=== PATIENT | female | born 1970 | race Caucasian/White ===

== ENCOUNTER 2020-09-20 13:38 | Outpatient (REF) | payer OTHER, SELFPAY ==
--- NOTE | ~2020-09-20 | MM_ITS ---
EXAMINATION: MM SCREENING DIGITAL BREAST TOMOSYNTHESIS, BILATERAL CLINICAL INFORMATION: Prior history left mastectomy for invasive lobular cancer. Status post reduction contralateral right breast. Due for yearly. COMPARISON: Outside mammography: 02/24/2018 ([facility]) TECHNIQUE: Digital breast tomosynthesis is performed in both the craniocaudal and mediolateral oblique views along with computer-aided detection (CAD). Synthesized 2D images are generated from the tomosynthesis. FINDINGS: There are scattered areas of fibroglandular density (ACR BI-RADS breast composition Category b). There is mild reduced breast size, decreased parenchymal density, and mild scarring since outside exam 2018, consistent with the reduction. Nodular asymmetry mid upper breast on MLO view is stable, also present on prior outside MLO view. There is no significant mass or architectural abnormality or abnormal calcifications. The axilla and skin contours are unremarkable. MM/MM tomosynthesis screening RT IMPRESSION: No mammographic evidence of malignancy. ASSESSMENT: BI-RADS 2: Benign RECOMMENDATION: Routine annual mammography screening. This patient's information was entered into a reminder system with a target due date for their next mammogram.
== END 2020-09-20 13:39 | disposition home or self-care (01) ==
LOC: HO.MAMMO 13:38
PROVIDERS: Visit Provider Internal Medicine Medical Oncology
DX: Z12.31 Encounter for screening mammogram for malignant neoplasm of breast (principal)
CPT/HCPCS: 77063; 77067

== ENCOUNTER 2021-09-25 08:13 | Outpatient (REF) | payer OTHER, SELFPAY ==
--- NOTE | ~2021-09-25 | MM_ITS ---
EXAMINATION: MM SCREENING DIGITAL BREAST TOMOSYNTHESIS, RIGHT CLINICAL INFORMATION: Screening. Asymptomatic. Status post left mastectomy. Status post right breast reduction. COMPARISON: Mammography: 09/20/2020 and studies dating back to 02/24/2018. TECHNIQUE: Digital breast tomosynthesis is performed in both the craniocaudal and mediolateral oblique views along with computer-aided detection (CAD). Synthesized 2-D images are generated from the tomosynthesis. Right exaggerated craniocaudal view also performed. FINDINGS: There are scattered areas of fibroglandular density (ACR BI-RADS breast composition Category b). Postsurgical scarring from reduction mammoplasty of the right breast is evident. There is question of a new circumscribed density seen on mediolateral oblique projection measuring approximately 1.1 x 0.9 cm in size within the central breast. Recommend patient be called back for spot compression view and possible ultrasound of this finding. This could be postoperative change but is more prominent than on prior examinations. MM/MM tomosynthesis screening RT IMPRESSION: 1. Question partially circumscribed density central aspect of the right breast for further evaluation. 2. Status post left mastectomy. ASSESSMENT: BI-RADS 0: Incomplete - Need Additional Imaging Evaluation RECOMMENDATION: 1. Additional views of the right breast. 2. Targeted ultrasound if warranted after review of the additional views. 3. Radiology department staff will contact the patient for additional imaging.
--- NOTE | ~2021-09-25 | MM_ITS ---
EXAMINATION: BONE DENSITOMETRY CLINICAL INDICATION: Postmenopausal. COMPARISON: Baseline BD dated 10/30/2018. TECHNIQUE: Using a Mandae DXA System (software version: 13.1) manufactured by [employer], dual-energy x-ray absorptiometry was performed of the lumbar spine and left hip. The images are of good technical quality. Summary results are attached. FINDINGS: AP SPINE L1-L3 (excluding L4): The data of L1-L4 has been changed to exclude the L4 vertebral body, because degenerative changes at this level may cause overestimation of lumbar spine density. Current: BMD 1.242 g/cm2, Z-score 0.0, T-score 0.6, normal, 5.5% decrease from baseline (<5% change is not significant). Baseline: BMD 1.314 g/cm2. LEFT FEMUR, NECK: Current: BMD 1.150 g/cm2, Z-score 0.9, T-score 0.8, normal. Baseline: BMD 1.238 g/cm2. LEFT FEMUR, TOTAL: Current: BMD 1.183 g/cm2, Z-score 1.1, T-score 1.4, normal, 0.3% decrease from baseline (<5% change is not significant). Baseline: BMD 1.186 g/cm2. IDENTIFIED RISK FACTORS: Menopause, tobacco use (current smoker). HISTORY OF FRACTURE: None listed. MEDICATIONS: Multivitamin, ERT/SERMS. MM/XR DEXA axial skeleton IMPRESSION: 1. DIAGNOSIS: Normal bone density based on the lowest T-score value of 0.6 in the lumbar spine applying World Health Organization criteria. 2. 10-YEAR FRACTURE RISK PREDICTION, FRAX: According to the guidelines, FRAX calculation should only be performed on patients in the osteopenia bone density category. Therefore, FRAX was not performed on this patient. 3. Treatment Recommendations: NOF guidelines recommend consideration for treatment in postmenopausal women and men age 50 and older presenting with the following: -A hip or vertebral (clinical or morphometric) fracture. -T-score less than or equal to -2.5 at the femoral neck or spine after appropriate evaluation to exclude secondary causes. -Low bone mass at the hip or spine and a 10-year fracture probability by FRAX of greater than or equal to 3% for hip fracture or greater than or equal to 20% for major osteoporotic fracture based on the [place] adapted WHO algorithm. 4. Other Recommendations: All treatment decisions require clinical judgment and consideration of individual patient factors, including patient preferences, comorbidities, previous drug use, risk factors not captured in the FRAX model (e.g. frailty, falls, vitamin D deficiency, increased bone turnover, interval significant decline in bone density) and possible under or overestimation of fracture risk by FRAX. FUTURE SCAN RECOMMENDATION: People with diagnosed cases of osteoporosis or at high risk for fracture should have regular bone mineral density tests. For patients eligible for Medicare, routine testing is allowed once every 2 years. The testing frequency can be increased to one year for patients who have rapidly progressing disease, those who are receiving or discontinuing medical therapy to restore bone mass, or have additional risk factors.
== END 2021-09-25 08:14 | disposition home or self-care (01) ==
LOC: HO.MAMMO 08:13
PROVIDERS: PCP Family Medicine; Visit Provider Internal Medicine Medical Oncology
DX: Z12.31 Encounter for screening mammogram for malignant neoplasm of breast (principal); Z13.820 Encounter for screening for osteoporosis; Z78.0 Asymptomatic menopausal state
CPT/HCPCS: 77063; 77067; 77080

== ENCOUNTER 2021-10-05 08:57 | Outpatient (REF) | payer OTHER, SELFPAY ==
--- NOTE | ~2021-10-05 | MM_ITS ---
EXAMINATION: MM DIAGNOSTIC DIGITAL BREAST TOMOSYNTHESIS, RIGHT US BREAST LIMITED, RIGHT CLINICAL INFORMATION: Density about the central aspect of the right breast. Status post previous right breast reduction mammoplasty. History of left breast mastectomy. COMPARISON: Mammography: 09/25/2021 and studies dating back to 02/24/2018. TECHNIQUE: Digital breast tomosynthesis was performed. 2D images were generated from the tomosynthesis. The following views are obtained: Spot compression views in craniocaudal and mediolateral oblique projections. Targeted right breast ultrasound. FINDINGS: There are scattered areas of fibroglandular density (ACR BI-RADS breast composition Category b). MAMMOGRAPHY: Additional views compress out the questioned mass with a similar appearance to prior studies with the appearance of stable scarring related to breast reduction surgery. ULTRASOUND: No abnormal right breast cystic or solid masses are identified. No suspicious region of abnormal distal sound shadowing. Results were discussed with the patient at time of visit. MM/MM tomosynthesis added views R IMPRESSION: No mammographic or evidence of right breast malignancy. Scarring related to reduction mammoplasty. ASSESSMENT: BI-RADS 2: Benign. RECOMMENDATION: Routine annual mammography screening. This patient's information was entered into a reminder system with a target due date for their next mammogram.
--- NOTE | ~2021-10-05 | US_ITS ---
EXAMINATION: US DIAGNOSTIC ULTRASOUND BREAST, RIGHT CLINICAL INFORMATION: Central breast density. COMPARISON: Mammography of October 05, 2021 and studies dating back to February 24, 2018. TECHNIQUE: Ultrasound of the breast is performed with real-time garcia scale imaging and color Doppler. FINDINGS: There is no focal suspicious finding. There is no solid mass, architectural abnormality, duct ectasia, or edema in the soft tissue planes. Results are discussed with the patient at time of visit. US/US breast RT limited IMPRESSION: No suspicious right breast ultrasound findings. ASSESSMENT: BI-RADS 1: Negative RECOMMENDATION: Routine annual mammography screening. This patient's information was entered into a reminder system with a target due date for their next mammogram.
== END 2021-10-05 08:58 | disposition home or self-care (01) ==
LOC: HO.MAMMO 08:57
PROVIDERS: Visit Provider Internal Medicine Medical Oncology
DX: R92.2 Inconclusive mammogram (principal)
CPT/HCPCS: 76642; 77061; 77065

== ENCOUNTER → 2021-11-08 09:41 | Outpatient (BNVA) | payer SELFPAY | PROVIDERS: PCP Family Medicine; Visit Provider Physician Assistant Medical | DX: Z02.79 Encounter for issue of other medical certificate (principal) ==

== ENCOUNTER → 2022-10-25 09:50 | Outpatient (REF) | payer OTHER, SELFPAY ==
--- NOTE | ~2022-10-25 | NM_ITS ---
EXAMINATION: NM BONE SCAN OF THE WHOLE BODY CLINICAL INFORMATION: Elevated alkaline phosphatase, hip pain. History of breast cancer COMPARISON: None TECHNIQUE: Multiple gamma scintillation camera images of the whole body were performed 3 hours following the intravenous administration of 42 mCi Tc-99m MDP. FINDINGS: In the head, there is no isotope uptake seen In the thoracic cage and upper extremities, No abnormal activity seen in the visualized bilateral upper extremities. In the spine, there is mild increased activity seen along the right mid and lower dorsal spine likely related to facet joint arthropathy. No abnormal activity seen in the lumbosacral or cervical spine. In the pelvis, no abnormal isotope activity seen In the lower extremities, no abnormal isotope activity seen No other definite bony abnormalities are noted. The urinary bladder and faint visualization of both kidneys are noted. NM/NM bone scan whole body IMPRESSION: Mild metabolic active seen along the right mid and lateral thoracic spine likely related to facet joint degenerative arthritic changes There is no abnormal metabolic activity seen in the rest of the whole body to suspect any metastatic disease.
== END ==
LOC: HO.NUCMED 09:50
PROVIDERS: PCP Family Medicine; Visit Provider Internal Medicine Medical Oncology
DX: R74.8 Abnormal levels of other serum enzymes (principal)
CPT/HCPCS: 78306; A9503

== ENCOUNTER 2023-10-17 11:14 | Outpatient (AMB) | payer OTHER, SELFPAY ==
[2023-10-17 11:16] VITALS: BP 120/74; PULSE 95; TEMP 36.3; O2SAT 97; BMI 44.4
--- NOTE | 2023-10-17 11:16 | MHC.OFFWIV ---
Intake Vital Signs 10/17/23 11:16 Height 5 ft 5 in Weight 267 lb BMI 44.4 BP 120/74 Blood Pressure Location Lt brachial Position Sitting Pulse 95 Pulse Source Pulse Oximeter Temp 97.3 F Temp Source Temporal Artery Scan Pulse Oximetry (%) 97 Oxygen Delivery Method Room Air Intake Visit Reasons: [employer]-Difficulty Walking, Left leg pain Intake Note: pt is here today for difficulty walking lft lft leg pain started 1 month ago Patient Tobacco Use Status: Current someday Tobacco user Allergies erythromycin base Allergy (Verified 10/17/23 11:21) Unknown Do you need a note to return to daycare/school/sports/work: Yes HPI HPI Comments History of Present Illness Details This is a 53-year-old female with a past medical history of depression and left hip arthritis presenting for evaluation of left hip and leg pain. Patient states she was diagnosed approximately a year ago with left hip arthritis by x-ray imaging. Patient denies any recent injury or trauma which has exacerbated her pain. Patient describes an aching soreness in her left leg that is worse with ambulation. Patient denies having any left calf pain. She has been taking ibuprofen 800 mg twice daily without relief of her symptoms. Patient states that she works as a concrete mixing truck driver and has difficulty getting up to the tour driver seat in her truck. [facility] Surgical History History of colonoscopy H/O mastectomy H/O lumpectomy Family History Maternal Aunt Breast cancer Paternal Grandmother Diabetes Mother Hypertension Social History Household Members: None Housing: House Are you a primary transitional care liaison to a significant other at home: No Do you presently have visiting nurse or other home services: No Alcohol intake: current Alcohol intake frequency: a few times a week Alcohol type: wine Patient Tobacco Use Status: Current someday Tobacco user Second Hand Smoke Exposure: No Substance Use Type: Marijuana service: No Current occupational status: employed Review of Systems Const All systems reviewed & are unremarkable except as noted in HPI and below Reports as per HPI Eyes Reports as per HPI Card Reports as per HPI Resp Reports as per HPI Musc Denies back pain, Reports arthralgias (left hip), Denies joint swelling, Denies limited range of motion and Denies muscle weakness Skin/Breast Reports system reviewed and no additional complaints, except as documented Psych Reports anxiety, Reports depression, Denies hopelessness and Denies suicidal ideation Endo Reports no additional complaints Physical Exam Vital Signs: Last Vital Signs Temp 97.3 F 10/17/23 11:16 Pulse 95 10/17/23 11:16 BP 120/74 10/17/23 11:16 Pulse Ox 97 10/17/23 11:16 Oxygen Delivery Method Room Air 10/17/23 11:16 BMI result Body Mass Index 44.4 Const Other: Patient is teary/crying throughout interview; denies any suicidality. General: cooperative, comfortable and well developed Nutritional Appearance: obese Orientation/consciousness: patient oriented x3 Limitations: no limitations Back/Spine/Pelvis Thoracic/Lumbar Spine: thoracic and lumbar spine normal to inspection, thoraco-lumbar ROM normal, No thoracic spinal tenderness and No lumbar spinal tenderness Pelvis: no buttock tenderness and no sciatic notch tenderness Sacroiliac joints: on the right nontender and on the left nontender Skin General skin exam: no rashes or lesions noted Neuro General: patient oriented x3 Extrem Other: There is no pain to palpation of the left hip and pain is not exacerbated with left hip flexion, palpation of the left sciatic notch, external rotation or internal rotation of the hips bilaterally against resistance, no calf tenderness bilaterally. Left lower extremity: hip/thigh Details: normal ROM; no tenderness and no swelling and lower leg; no edema and joint enlargement noted Assessment & Plan Assessment & Plan (1) Left leg pain: Comment: Patient is seen and evaluated. Given there is no history of recent trauma or injury, no further imaging is warranted at this time. Patient will be prescribed Naprosyn to take twice daily. Patient is encouraged to follow up with her primary care provider to receive a referral for physical therapy as well as cognitive therapy secondary to her depression. Code(s): M79.605 - Pain in left leg Plan: Naprosyn 500 mg q.12 hours; pursue physical therapy referral through primary care provider at [facility]. Medications: New naproxen (Naprosyn) 500 mg PO BID 20 tabs 0RF Discontinued letrozole Discontinued Reason: Patient no longer taking 2.5 mg PO DAILY 90 tabs 3RF Coding Level of Care Code New Pt Level 3 (49276) Diagnoses Left leg pain M79.605 Time Spent (min) 20
== END 2023-10-17 12:50 | disposition home or self-care (01) ==
PROVIDERS: PCP Family Medicine; Visit Provider Physician Assistant
DX: M79.605 Pain in left leg (principal)
CPT/HCPCS: 99203

== ENCOUNTER → 2023-10-31 09:55 | Outpatient (BNVA) | payer SELFPAY | PROVIDERS: PCP Family Medicine; Visit Provider Registered Nurse | DX: Z02.79 Encounter for issue of other medical certificate (principal) ==